=== PATIENT | male | born 2000 | race Caucasian/White ===

== ENCOUNTER 2025-04-21 21:47 | Emergency (ER) | payer SELFPAY ==
[~2025-04-21] VITALS: Ht 177.8 cm; Wt 73.0 kg
[2025-04-21 21:59] VITALS: TEMP 37; O2SAT 98
[2025-04-21] MEDS: LORAZEPAM 1MG TABLET PO ONE (22:29)
[2025-04-21 23:08] VITALS: BP 134/74; PULSE 91; RESP 18; O2SAT 98
== END 2025-04-21 23:09 | disposition home or self-care (01) ==
LOC: ER 21:47
DX: F41.9 Anxiety disorder, unspecified (principal); F15.10 Other stimulant abuse, uncomplicated; F17.200 Nicotine dependence, unspecified, uncomplicated
CPT/HCPCS: 99283